=== PATIENT | male | born 1980 | race Caucasian/White ===

== ENCOUNTER 2018-03-02 19:57 | Emergency (ER) | payer OTHER ==
[~2018-03-02] VITALS: Ht 182.9 cm; Wt 111.6 kg
[2018-03-02 20:02] VITALS: Ht 182.9 cm; Wt 111.6 kg
[2018-03-02 20:53] VITALS: BP 165/89
== END 2018-03-02 20:53 | disposition home or self-care (01) ==
LOC: ED 19:57
DX: L25.9 Unspecified contact dermatitis, unspecified cause (principal); I10 Essential (primary) hypertension

== ENCOUNTER 2019-10-29 00:41 | Emergency (ER) | payer OTHER ==
[~2019-10-29] VITALS: Ht 182.9 cm; Wt 116.6 kg
[2019-10-29 00:50] VITALS: Ht 182.9 cm; Wt 116.6 kg
[2019-10-29 02:55] VITALS: BP 162/102
== END 2019-10-29 02:55 | disposition home or self-care (01) ==
LOC: ED 00:41
DX: R59.0 Localized enlarged lymph nodes (principal); R68.84 Jaw pain; I10 Essential (primary) hypertension; E78.00 Pure hypercholesterolemia, unspecified
CPT/HCPCS: J1885